=== PATIENT | female | born 1990 | race Caucasian/White ===

== ENCOUNTER 2019-11-23 15:03 | Emergency (ER) | payer SELFPAY ==
[~2019-11-23] VITALS: Ht 170.2 cm; Wt 71.7 kg
[2019-11-23 15:20] VITALS: BP 111/71
--- NOTE | 2019-11-23 15:25 | NUR ---
SONA James in [facility] during triage.
--- NOTE | 2019-11-23 15:28 | NUR ---
Went inside to get patient an ice pack and some ice water while she waited. Pt had left by the time I returned. Witnessed pt walking down the street with steady gait and no assistance.
== END 2019-11-23 15:36 | disposition home or self-care (01) ==
LOC: ER 15:04
DX: R06.02 Shortness of breath (principal); F17.200 Nicotine dependence, unspecified, uncomplicated
CPT/HCPCS: 99281